=== PATIENT | male | born 1970 | race Asian ===

== ENCOUNTER 2019-01-07 19:22 | Emergency (ER) | payer BC ==
[~2019-01-07] VITALS: Ht 165.1 cm; Wt 72.6 kg
[2019-01-07 19:25] VITALS: BP_SYST 139
[2019-01-07] MEDS ORDERED: MORPHINE 4 MG/ML INJ. SYRINGE IVP ONE (20:00)
[2019-01-07] MEDS ORDERED: DIPH-TET-PERTUS Vaccine 0.5 ML VIAL (ADACEL) I.M. ONE ×2 (20:00→22:22)
[2019-01-07] MEDS ORDERED: KETAMINE 30 MG/3 ML SYRINGE IVP ONE (20:00)
[2019-01-07] MEDS ORDERED: MORPHINE SULFATE 10 MG/ML VIAL ONE (20:22)
[2019-01-07 20:24] LABS: BASOPHILS # (AUTO) 0.2 K/uL (0.0-0.2); BASOPHILS % (AUTO) 1.9 % (0.0-2.0); EOSINOPHILS # (AUTO) 0.2 K/uL (0.0-0.4); EOSINOPHILS % (AUTO) 1.4 % (0.0-4.0); HEMATOCRIT 42.4 % (36-54); HEMOGLOBIN 14.5 g/dL (14.0-18.0); LYMPHOCYTES # (AUTO) 1.6 K/uL (1.0-5.5); LYMPHOCYTES % (AUTO) 14.4 % (20.5-51.5); MEAN CORPUSCULAR HEMOGLOBIN 32 pg (27-31); MEAN CORPUSCULAR HGB CONC 34 % (32-36); MEAN CORPUSCULAR VOLUME 95 fL (79.0-98.0); MONOCYTES # (AUTO) 0.8 K/uL (0.0-1.0); MONOCYTES % (AUTO) 7.5 % (1.7-9.3); NEUTROPHILS # (AUTO) 8.5 K/uL (1.8-7.7); NEUTROPHILS % (AUTO) 74.8 % (40.0-70.0); PLATELET COUNT (AUTO) 265 K/uL (130-430); RED BLOOD CELL COUNT(AUTO) 4.49 MIL/uL (4.2-6.2); WHITE BLOOD COUNT (AUTO) 11.3 K/uL (4.8-10.8)
[2019-01-07] MEDS ORDERED: MORPHINE SULFATE 10 MG/ML VIAL IVP ONE (20:30)
[2019-01-07 20:34] LABS: CALCIUM 8.3 mg/dL (8.4-11.0); CREATININE 0.99 mg/dL (0.55-1.30)
[2019-01-07 20:41] LABS: ALBUMIN 3.7 g/dL (3.4-4.8); TOTAL BILIRUBIN 0.2 mg/dL (0.0-1.0)
[2019-01-07] MEDS ORDERED: LIDOCAINE/EPI 1% 1:100000 20 ML VIAL INJ ONE ×2 (20:45→21:12)
[2019-01-07] MEDS ORDERED: CEFEPIME 2 GM in D5W 100 ML IV ONE (21:30)
[2019-01-07] MEDS ORDERED: CEFEPIME 1 GM/VIAL (MAXIPIME) ONE (22:24)
[2019-01-07 22:40] VITALS: BP_SYST 145
== END 2019-01-07 22:40 | disposition short-term general hospital (02) ==
LOC: SED 19:22
DX: S52.92XB Unspecified fracture of left forearm, initial encounter for open fracture type I or II (principal); S51.812A Laceration without foreign body of left forearm, initial encounter; Z88.0 Allergy status to penicillin; W27.0XXA Contact with workbench tool, initial encounter; Y93.89 Activity, other specified; Y92.89 Other specified places as the place of occurrence of the external cause; Y99.8 Other external cause status
CPT/HCPCS: 12034; 36415; 73090; 80053; 85025; 86886; 86900; 86901; 90471; 90715; 96374; 96375; 99285; J0692; J2270 ×2